=== PATIENT | female | born 1995 ===

== ENCOUNTER 2025-07-04 08:00 | Day surgery (SDC) | payer OTHER ==
[2025-06-28 13:23] VITALS: BP 117/81
[2025-06-28 15:22] LABS: RH POSITIVE
[~2025-07-04] VITALS: Ht 165.1 cm; Wt 77.1 kg
[~2025-07-04 08:00] MED LIST: SPRINTEC 28 DA1 EAC1 PO; SYNTHROID125 MCG PO
[2025-07-04] MEDS ORDERED: POVIDONE-IODINE 118 ML BOTT TOP ONE (12:15)
[2025-07-04] MEDS ORDERED: RINGERS SOLUTION,LACTATED 1,000 ML IV SCH (13:30)
[2025-07-04] MEDS ORDERED: KETOROLAC TROMETHAMINE 30 MG VIAL IV ONE (13:45)
[2025-07-04] MEDS ORDERED: KETOROLAC TROMETHAMINE 30 MG VIAL ONE (14:28)
== END 2025-07-04 18:45 | disposition home or self-care (01) ==
LOC: CIR.AMB 08:00
PROVIDERS: ATTEND Student in an Organized Health Care Education/Training Program
DX: N93.8 Other specified abnormal uterine and vaginal bleeding (principal); D25.9 Leiomyoma of uterus, unspecified